=== PATIENT | male | born 1940 | race Caucasian/White ===

== ENCOUNTER 2019-12-28 10:48 | Emergency (ER) | payer OTHER ==
--- OUTSIDE RECORDS SUMMARY | 2019-12-28 10:50 | XMS REPORT ---
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
--- OUTSIDE RECORDS SUMMARY | 2019-12-28 10:50 | XMS REPORT ---
:1940 Author [facility] Providers Name Role Phone Fernandes, Na Provider Role Unavailable Allergies, Adverse Reactions, Alerts Substance Reaction Event Type N.K.D.A. 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 Problem Prostate ca C61 Active Problem History of malignant neoplasm of Z85.46 Active prostate Problem Renal insufficiency N28.9 Active Assessment Acute hyperkalemia E87.5 Active Problem Leukopenia D72.819 Active Assessment Mild carotid artery disease I77.9 Active Assessment Bilateral edema of lower extremity R60.0 Active Problem Actinic keratosis L57.0 Active Problem Anxiety F41.9 Active Problem Allergic rhinitis, seasonal J30.2 Active Problem Prostate cancer C61 Active Problem Hypertension I10 Active Assessment Anxiety F41.9 Active Assessment Mixed hyperlipidemia E78.2 Active Assessment Neutropenia, unspecified type D70.9 Active Assessment Renal insufficiency N28.9 Active Problem Neutropenia, unspecified type D70.9 Active Problem Osteoarthritis, 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 Active Assessment History of malignant neoplasm of Z85.46 Active prostate Assessment Hypertension I10 Active Problem Influenza vaccination administered Z23 Active at current visit Assessment Actinic keratosis L57.0 Active Problem Mixed hyperlipidemia E78.2 Active Medications Medication Code Code Instructions Start End Status Dosage System Date Date Flonase [facility] 85994364961 50 MCG/ACT Active 2 spray in Nasally Once a each day nostril Plavix [facility] 56800282102 75 MG Orally Active 1 tablet Once a day Aspir-81 ND 89004317178 81 MG Orally Active 1 tablet Once a day Ultram [facility] 95122067941 50 MG Orally at Inactive 1 tablet bedtime as needed Citalopram ND 52075983639 20 MG Orally Active 1 tablet Hydrobromide Once a day Altace [facility] 47307275897 10 MG Orally Active 1 capsule Once a day Flonase [facility] 19148375404 50 MCG/ACT Active 2 spray in Nasally Once a each day nostril Amlodipine [facility] 29779941526 2.5 MG Orally Active 1 tablet Besylate Once a day Results No Known Results Summary Purpose eClinicalWorks Submission
--- OUTSIDE RECORDS SUMMARY | 2019-12-28 10:50 | XMS REPORT ---
:1940 [facility] Team Providers Name Role Phone Fernandes, Na Provider Role Unavailable Allergies, Adverse Reactions, Alerts Substance Reaction Event Type N.K.D.A. 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 Problem Prostate ca C61 Active Problem History of malignant neoplasm of Z85.46 Active prostate Problem Renal insufficiency N28.9 Active Assessment Actinic keratosis L57.0 Active Problem Leukopenia D72.819 Active Assessment Renal insufficiency N28.9 Active Assessment Mild carotid artery disease I77.9 Active Problem Actinic keratosis L57.0 Active Problem Anxiety F41.9 Active Problem Allergic rhinitis, seasonal J30.2 Active Problem Prostate cancer C61 Active Problem Hypertension I10 Active Assessment Hypertension I10 Active Assessment Subareolar gynecomastia in male N62 Active Assessment Anxiety F41.9 Active Assessment Mixed hyperlipidemia E78.2 Active Problem Neutropenia, unspecified type D70.9 Active Problem Osteoarthritis, 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 40269409287 81 MG Orally Active 1 tablet Once a day Ultram ND 83610957393 50 MG Orally at Inactive 1 tablet bedtime as needed Flonase ND 45194424759 50 MCG/ACT Active 2 spray in Nasally Once a each day nostril Amlodipine ND 17894775189 5 MG Orally Active 1 tablet Besylate Once a day Citalopram ND 22773122760 20 MG Orally Active 1 tablet Hydrobromide Once a day Flonase ND 89580717248 50 MCG/ACT Active 2 spray in Nasally Once a each day nostril Plavix [facility] 10642918251 75 MG Orally Active 1 tablet Once a day Altace [facility] 57686256811 10 MG Orally Active 1 capsule Once a day Results Name Result Date Reference Range Unit Abnormality Flag Ultrasound : Breast, left Summary Purpose eClinicalWorks Submission
[2019-12-28] MEDS ORDERED: NA CHLORIDE 0.9% 1,000 ML ONE (11:29)
[2019-12-28 11:51] LABS: Absolute Lymphocytes (CBC) 0.4 K/uL (0.7-4.9); Basophils % 0.2 % (0-1.3); Hematocrit 37.9 % (39.6-49.0); Lymphocytes % 6.8 % (15.3-44.8); MPV 7.7 fL (7.6-11.3); RBC Red Blood Cell Count 4.19 M/uL (4.33-5.43)
[2019-12-28 12:04] LABS: Bilirubin Direct 0.2 mg/dL (0-0.2); Bilirubin Total 0.6 mg/dL (0.2-1.0); Protein, Total 7.1 g/dL (6.4-8.2)
[2019-12-28 12:23] LABS: Urine Blood 2+ (NEG); Urine Glucose NEGATIVE (NEG); Urine Protein TRACE (NEG); Urine pH 5.5 (5.0-7.0)
[2019-12-28 12:37] LABS: Urine Bacteria >50 /HPF (NONE SEEN); Urine Culture Reflex Order REFLEXED; Urine Mucus HEAVY /HPF (NONE SEEN); Urine RBC 20-50 /HPF (NONE SEEN)
--- NOTE | 2019-12-28 12:59 | EDPHYS ---
Physician Documentation [facility] Name: Bandar Moise Age: 79 yrs Sex: Male : 1940 Arrival Date: 12/28/2019 Time: 10:51 Bed 8 Private MD: ED Physician Elian Alvarado HPI: 12/28 11:58 This 79 yrs old Male presents to ER via Ambulatory with complaints of fever. rn 11:58 The patient reports fever, not measured (subjective). Onset: The symptoms/episode rn began/occurred 4 day(s) ago. Modifying factors: there are no obvious modifying factors. Severity of symptoms: At their worst the symptoms were mild in the emergency department the symptoms are unchanged. The patient has not experienced similar symptoms in the past. Reports subjective fever, chills, began 4 days ago, no headache/skin change/cough/sob/abd pain. Reports decreased appetite/generalized weakness and fatigue. No urinary symptoms. No diarrhea or blood in stool. . Historical: - Allergies: 11:10 No Known Allergies; bp - Home Meds: 11:10 amlodipine oral [Active]; bp - PMHx: 11:10 Hypertension; bp - PSHx: 11:10 PROSTATE SX; bp - Immunization history:: Adult Immunizations up to date. - Coronavirus screen:: The patient has NOT traveled to [place] in the past 14 days. The patient has NOT had contact with known/suspected case of Coronavirus? Proceed with normal triage procedures. - Social history:: Smoking status: Patient denies any tobacco usage or history of. - Family history:: not pertinent. - Ebola Screening: : No symptoms or risks identified at this time. - Hospitalizations: : No recent hospitalization is reported. 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 Exam: 11:58 Constitutional: This is a well developed, well nourished patient who is awake, alert, rn and in no acute distress. Ambulatory to room without difficulty or distress Head/Face: Normocephalic, atraumatic. Eyes: Pupils equal round and reactive to light, extra-ocular motions intact. Lids and lashes normal. Conjunctiva and sclera are non-icteric and not injected. Cornea within normal limits. Periorbital areas with no swelling, redness, or edema. ENT: Dry MM Neck: Trachea midline, no thyromegaly or masses palpated, and no cervical lymphadenopathy. Supple, full range of motion without nuchal rigidity, or vertebral point tenderness. No Meningismus. Cardiovascular: Regular rate and rhythm. No pulse deficits. Respiratory: Lungs have equal breath sounds bilaterally, clear to auscultation. No increased work of breathing, no retractions or nasal flaring. Abdomen/GI: soft, non-tender, no masses MS/ Extremity: Pulses equal, no cyanosis. Neurovascular intact. Full, normal range of motion. Equal circumference. Neuro: Awake and alert, GCS 15, oriented to person, place, time, and situation. Cranial nerves II-XII grossly intact. Motor strength 5/5 in all extremities. Sensory grossly intact. Cerebellar exam normal. Normal gait. Vital Signs: 11:11 BP 114 / 66; Pulse 82; Resp 17; Temp 97.7; Pulse Ox 97% ; Weight 102.06 kg; Height 5 bp ft. 10 in. (177.80 cm); 12:04 BP 121 / 57; Pulse 66; Resp 17; Pulse Ox 98% ; bp 13:12 BP 123 / 55; Pulse 67; Resp 17; Temp 97.8; Pulse Ox 99% ; bp 11:11 Body Mass Index 32.28 (102.06 kg, 177.80 cm) bp MDM: 11:01 Patient medically screened. rn 12:57 Differential diagnosis: viral Infection, bacterial infection, UTI. Data reviewed: vital rn signs, nurses notes, lab test result(s), and as a result, I will discharge patient. Counseling: I had a detailed discussion with the patient and/or guardian regarding: the historical points, exam findings, and any diagnostic results supporting the discharge/admit diagnosis, lab results, the need for outpatient follow up, to return to the emergency department if symptoms worsen or persist or if there are any questions or concerns that arise at home. Response to treatment: the patient's symptoms have mildly improved after treatment, and as a result, I will discharge patient. Special discussion: I discussed with the patient/guardian in detail that at this point there is no indication for admission to the hospital. It is understood, however, that if the symptoms persist or worsen the patient needs to return immediately for re-evaluation. 12/28 11:13 Order name: CBC with Diff rn 12/28 11:13 Order name: Basic Metabolic Panel rn 12/28 11:13 Order name: Urine Microscopic Only rn 12/28 11:13 Order name: Procalcitonin rn 12/28 11:13 Order name: Flu rn 12/28 11:13 Order name: Strep rn 12/28 11:13 Order name: [place] Screen Profile rn 12/28 11:13 Order name: Hepatic Function rn 12/28 11:13 Order name: Lipase rn 12/28 11:52 Order name: CBC with Automated Diff; Complete Time: 11:56 EDNC 12/28 12:00 Order name: Group A Streptococcus Rapid Sc; Complete Time: 12:05 EDNC 12/28 12:04 Order name: Urine Dipstick--Ancillary (enter results) ms 12/28 12:04 Order name: Basic Metabolic Panel; Complete Time: 12:05 EDNC 12/28 12:04 Order name: Liver (Hepatic) Function; Complete Time: 12:05 EDNC 12/28 11:13 Order name: IV Start; Complete Time: 11:31 rn 12/28 11:13 Order name: Urine Dipstick-Ancillary (obtain specimen); Complete Time: 12:04 rn 12/28 11:13 Order name: Labs collected and sent; Complete Time: 11:31 rn 12/28 12:04 Order name: Lipase; Complete Time: 12:05 EDNC 12/28 12:08 Order name: Influenza Screen (A ; Complete Time: 12:53 EDMS 12/28 12:10 Order name: [place] Screen; Complete Time: 12:53 EDMS 12/28 12:22 Order name: Procalcitonin; Complete Time: 12:53 EDNC 12/28 12:25 Order name: Urine Dipstick-Ancillary; Complete Time: 12:53 EDMS 12/28 12:37 Order name: Urine Microscopic Only; Complete Time: 12:53 EDMS Administered Medications: 11:31 Drug: NS 0.9% 500 ml Route: IV; Rate: bolus; Site: right antecubital; bp 13:12 Follow up: IV Status: Completed infusion; IV Intake: 500ml bp Disposition: 12/28/19 12:58 Discharged to Home. Impression: Dehydration, Urinary tract infection, site not specified. - Condition is Stable. - Discharge Instructions: Dehydration, Adult, Urinary Tract Infection, Adult. - Prescriptions for Macrobid 100 mg Oral Capsule - take 1 capsule by ORAL route every 12 hours for 10 days; 20 capsule. - Medication Reconciliation Form, Thank You Letter, Antibiotic Education, Prescription Opioid Use form. - Follow up: Private Physician; When: As needed; Reason: Recheck today's complaints, Re-evaluation by your physician. - Problem is new. - Symptoms have improved. Signatures: Dispatcher [employer] [facility] Elian Alvarado MD MD rn Peltier, Brian, RN RN bp Corrections: (The following items were deleted from the chart) 13:14 12:58 12/28/2019 12:58 Discharged to Home. Impression: Dehydration; Urinary tract bp infection, site not specified. Condition is Stable. Forms are Medication Reconciliation Form, Thank You Letter, Antibiotic Education, Prescription Opioid Use. Follow up: Private Physician; When: As needed; Reason: Recheck today's complaints, Re-evaluation by your physician. Problem is new. Symptoms have improved. rn
--- NOTE | 2019-12-28 12:59 | ER ---
Nurse's Notes [facility] Name: Bandar Moise Age: 79 yrs Sex: Male : 1940 Arrival Date: 12/28/2019 Time: 10:51 Bed 8 Private MD: Diagnosis: Dehydration;Urinary tract infection, site not specified Presentation: 12/28 11:07 Presenting complaint: Patient states: INTERMITTENT DIZZINESS, ANOREXIA AND CHILLS x4 bp DAYS. Transition of care: patient was not received from another setting of care. Onset of symptoms is unknown. Risk Assessment: Do you want to hurt yourself or someone else? Patient reports no desire to harm self or others. Initial Sepsis Screen: Does the patient meet any 2 criteria? No. Patient's initial sepsis screen is negative. Does the patient have a suspected source of infection? No. Patient's initial sepsis screen is negative. Care prior to arrival: None. 11:07 Method Of Arrival: Ambulatory bp 11:07 Acuity: ADRIA 3 bp Triage Assessment: 11:10 General: Appears in no apparent distress. comfortable, Behavior is cooperative, bp appropriate for age, anxious. Pain: Denies pain. EENT: No deficits noted. Neuro: Level of Consciousness is awake, alert, obeys commands, Oriented to person, place, time, situation, Appropriate for age Reports dizziness. Cardiovascular: No deficits noted. Respiratory: No deficits noted. GI: No signs and/or symptoms were reported involving the gastrointestinal system. : No signs and/or symptoms were reported regarding the genitourinary system. Derm: No deficits noted. Musculoskeletal: No deficits noted. Historical: - Allergies: 11:10 No Known Allergies; bp - Home Meds: 11:10 amlodipine oral [Active]; bp - PMHx: 11:10 Hypertension; bp - PSHx: 11:10 PROSTATE SX; bp - Immunization history:: Adult Immunizations up to date. - Coronavirus screen:: The patient has NOT traveled to [place] in the past 14 days. The patient has NOT had contact with known/suspected case of Coronavirus? Proceed with normal triage procedures. - Social history:: Smoking status: Patient denies any tobacco usage or history of. - Family history:: not pertinent. - Ebola Screening: : No symptoms or risks identified at this time. - Hospitalizations: : No recent hospitalization is reported. Screenin:12 Abuse screen: Denies threats or abuse. Denies injuries from another. Nutritional bp screening: No deficits noted. Tuberculosis screening: No symptoms or risk factors identified. Fall Risk None identified. Assessment: 11:13 General: SEE TRIAGE NOTE. bp 13:12 Reassessment: PT D/C HOME AMBULATORY WITH FAMILY, DX WITH UTI AND DEHYDRATION. bp Vital Signs: 11:11 BP 114 / 66; Pulse 82; Resp 17; Temp 97.7; Pulse Ox 97% ; Weight 102.06 kg; Height 5 bp ft. 10 in. (177.80 cm); 12:04 BP 121 / 57; Pulse 66; Resp 17; Pulse Ox 98% ; bp 13:12 BP 123 / 55; Pulse 67; Resp 17; Temp 97.8; Pulse Ox 99% ; bp 11:11 Body Mass Index 32.28 (102.06 kg, 177.80 cm) bp ED Course: 10:51 Patient arrived in ED. as 11:01 Elian Alvarado MD is Attending Physician. rn 11:07 Markie Mckenna RN is Primary Nurse. bp 11:09 Triage completed. bp 11:11 Arm band placed on. bp 11:12 Patient has correct armband on for positive identification. Bed in low position. Call bp light in reach. Side rails up X2. 11:32 Inserted saline lock: 20 gauge in right antecubital area, using aseptic technique. bp Blood collected. 13:12 No provider procedures requiring assistance completed. IV discontinued, intact, bp bleeding controlled, No redness/swelling at site. Pressure dressing applied. Administered Medications: 11:31 Drug: NS 0.9% 500 ml Route: IV; Rate: bolus; Site: right antecubital; bp 13:12 Follow up: IV Status: Completed infusion; IV Intake: 500ml bp Intake: 13:12 IV: 500ml; Total: 500ml. bp Outcome: 12:58 Discharge ordered by . rn 13:12 Discharged to home ambulatory, with family. bp 13:12 Condition: stable 13:12 Discharge instructions given to patient, Instructed on discharge instructions, follow up and referral plans. medication usage, Demonstrated understanding of instructions, follow-up care, medications, Prescriptions given X 1. 13:14 Patient left the ED. bp Addendum: 12/31/2019 10:02 Addendum: Culture Results: Positive urine culture. No further action required. Bacteria h b sensitive to prescribed antibiotic. Signatures: Elida Jones Roman, MD MD rn Baxter, Heather, RN RN Markie Woodall RN RN bp
[2019-12-28 13:55] VITALS: BP 123/55; TEMP 97.8; O2SAT 99
== END 2019-12-28 13:14 | disposition home or self-care (01) ==
LOC: ER 10:48
DX: N39.0 Urinary tract infection, site not specified (principal); E86.0 Dehydration; I10 Essential (primary) hypertension
CPT/HCPCS: 96361; 87070; 87088; 85025; 87086; 80048; 36415; 86308; 80076; 87081; 87077; 87186; 83690; 84145; 87804 ×2; 96360; 99284; J7030; 81003; 81015